=== PATIENT | male | born 1960 | race Caucasian/White ===

== ENCOUNTER 2021-04-12 20:38 | Inpatient (IN) | payer OTHER ==
[2021-04-12] MEDS ORDERED: SODIUM CHLORIDE 2,354 ML IV ONE (20:57)
[2021-04-12 21:58] LABS: BASO % 0.5 % (0-2.0); HEMATOCRIT 30.1 % (35.4-49); HEMOGLOBIN 10.7 GM/dL (11.7-16.9); LYMPH % 17.3 % (8-40); MCH 30.7 pg (25.7-33.7); MCHC 35.6 g/dl (32.0-35.9); MEAN CELL VOLUME 86.1 fl (80-96); MEAN PLT VOLUME 7.9 fl (7.5-11.1); MONO % 7.2 % (3.8-10.2); PLATELET COUNT 334 10^3/uL (134-434); RDW 14.2 % (11.9-15.9)
[2021-04-12 22:12] LABS: VENOUS BASE EXCESS 1.1 mmol/L (-2-2); VENOUS PCO2 55.3 mmHg (38-52); VENOUS PH 7.321 (7.310-7.410)
[2021-04-12 22:17] LABS: CHLORIDE 103 mmol/L (98-107); SODIUM 138 mmol/L (136-145)
[2021-04-12 22:18] LABS: ANION GAP 10 MMOL/L (8-16); CALCIUM 8.8 mg/dL (8.5-10.1); CO2 25 mmol/L (21-32)
[2021-04-12 22:20] LABS: ALBUMIN 3.6 g/dl (3.4-5.0); BLOOD UREA NITROGEN 28.9 mg/dL (7-18); GLUCOSE,RANDOM 141 mg/dL (74-106)
[2021-04-12 22:23] LABS: CREATININE 1.4 mg/dL (0.55-1.3); SGOT/AST 23 U/L (15-37); SGPT/ALT 38 U/L (13-61)
[2021-04-12 22:25] LABS: TOT PROT 7.1 g/dl (6.4-8.2)
[2021-04-12 22:26] LABS: ALK PHOS 69 U/L (45-117); BILIRUBIN,TOTAL 0.4 mg/dL (0.2-1)
[2021-04-12 22:29] LABS: LACTIC ACID 2.4 mmol/L (0.4-2.0)
[2021-04-12 22:32] LABS: INR 1.09 (0.83-1.09); PROTHROMBIN TIME (PATIENT) 13.1 SEC (9.7-13.0)
[2021-04-12 22:34] LABS: ACTIVATED PTT 21.8 SECONDS (25.2-36.5)
[2021-04-12] MEDS ORDERED: SODIUM CHLORIDE 0.9% 500 ML INFUS.BAG IV ONE (22:53)
[2021-04-13 01:08] LABS: PH,URINE 6.5 (5.0-8.0); URINE APPEARANCE CLEAR; URINE BILIRUBIN NEGATIVE (NEGATIVE); URINE COLOR YELLOW; URINE GLUCOSE (UA) NEGATIVE (NEGATIVE); URINE KETONE NEGATIVE (NEGATIVE); URINE LEUK ESTERASE NEGATIVE (NEGATIVE); URINE NITRITE NEGATIVE (NEGATIVE); URINE PROTEIN NEGATIVE (NEGATIVE); URINE UROBILINOGEN 0.2 mg/dL (0.2-1.0)
[2021-04-13 01:59] LABS: LACTIC ACID 2.6 mmol/L (0.4-2.0)
[2021-04-13] MEDS ORDERED: HEPARIN NA (PORCINE) 5,000 UNITS/ML 1ML VIAL ONE ×2 (06:34→13:16)
[2021-04-13] MEDS: HEPARIN NA (PORCINE) 5,000 UNITS/ML 1ML VIAL SQ SCH ×3 (06:37→22:01)
[2021-04-13 08:06] LABS: HEMATOCRIT 31.4 % (35.4-49); HEMOGLOBIN 11.2 GM/dL (11.7-16.9); MCH 30.9 pg (25.7-33.7); MCHC 35.8 g/dl (32.0-35.9); MEAN CELL VOLUME 86.2 fl (80-96); MEAN PLT VOLUME 7.5 fl (7.5-11.1); PLATELET COUNT 319 10^3/uL (134-434); RBC 3.64 M/mm3 (4.00-5.60); RDW 14.1 % (11.9-15.9); WHITE BLOOD COUNT 5.5 K/mm3 (4.0-10.0)
[2021-04-13 08:16] LABS: ALBUMIN 3.5 g/dl (3.4-5.0); BLOOD UREA NITROGEN 20.2 mg/dL (7-18); CALCIUM 8.4 mg/dL (8.5-10.1)
[2021-04-13 08:17] LABS: MAGNESIUM 2.2 mg/dL (1.8-2.4)
[2021-04-13 08:21] LABS: BILIRUBIN,TOTAL 0.3 mg/dL (0.2-1); TOT PROT 6.9 g/dl (6.4-8.2)
[2021-04-13] MEDS ORDERED: ASPIRIN COATED 81 MG TABLET.EC PO SCH (10:00)
[2021-04-13] MEDS ORDERED: ASPIRIN COATED 81 MG TABLET.EC ONE (10:12)
[2021-04-13] MEDS: INSULIN SLIDING SCALE (NOVOLOG) 1 VIAL SQ SCH ×4 (10:15→22:01)
[2021-04-13] MEDS ORDERED: METOPROLOL TARTRATE 50 MG TABLET (FP) PO ONE (12:21)
[2021-04-13] MEDS ORDERED: amLODIPine BESYLATE 5 MG TABLET (FP) PO SCH (12:30)
[2021-04-13] MEDS ORDERED: amLODIPine BESYLATE 5 MG TABLET (FP) ONE (13:16)
[2021-04-13] MEDS ORDERED: CLOPIDOGREL BISULFATE 75 MG TABLET (FP) ONE (13:16)
[2021-04-13] MEDS ORDERED: METOPROLOL TARTRATE 50 MG TABLET (FP) ONE (13:16)
[2021-04-13] MEDS: CLOPIDOGREL BISULFATE 75 MG TABLET (FP) PO SCH (13:35)
[2021-04-13 16:07] VITALS: BMI 30.4
[2021-04-13] MEDS ORDERED: LIDOCAINE 5% TOPICAL PATCH TP ONE (19:23)
[2021-04-13] MEDS ORDERED: ACETAMINOPHEN 1000 MG/100 ML VIAL (NON FORMULARY) IVPB ONE (19:25)
[2021-04-13] MEDS ORDERED: ATORVASTATIN CA 80 MG TABLET (FP) PO SCH ×2 (22:00)
[2021-04-13] MEDS ORDERED: METOPROLOL TARTRATE 50 MG TABLET (FP) PO SCH (22:00)
[2021-04-13] MEDS: METOPROLOL TARTRATE 50 MG TABLET (FP) PO SCH (22:01)
[2021-04-14] MEDS ORDERED: metFORMIN HCL 500 MG TABLET (FP) PO SCH (07:00)
[2021-04-14] MEDS ORDERED: LIDOCAINE PATCH REMOVAL MC ONE (07:30)
[2021-04-14] MEDS: HEPARIN NA (PORCINE) 5,000 UNITS/ML 1ML VIAL SQ SCH ×2 (07:36→14:34)
[2021-04-14] MEDS: INSULIN SLIDING SCALE (NOVOLOG) 1 VIAL SQ SCH ×3 (07:40→17:30)
[2021-04-14] MEDS: METOPROLOL TARTRATE 50 MG TABLET (FP) PO SCH (09:37)
[2021-04-14] MEDS: CLOPIDOGREL BISULFATE 75 MG TABLET (FP) PO SCH (09:37)
[2021-04-14] MEDS ORDERED: amLODIPine BESYLATE 5 MG TABLET (FP) PO SCH (10:00)
[2021-04-14] MEDS ORDERED: VALSARTAN 160 MG TABLET PO SCH (10:00)
[2021-04-14] MEDS ORDERED: ASPIRIN COATED 81 MG TABLET.EC PO SCH (10:00)
[2021-04-14 10:22] LABS: LACTIC ACID 2.4 mmol/L (0.4-2.0)
[2021-04-14] MEDS ORDERED: SODIUM CHLORIDE 0.45% 1,000 ML IV SCH (10:30)
[2021-04-14] MEDS ORDERED: BENZOCAINE/MENTH/CETYLPYRD CL 1 EACH LOZENGE MM PRN (13:03)
[2021-04-14 14:07] VITALS: PULSE 64
[2021-04-14 18:31] VITALS: BP 129/81; TEMP 98.4
== END 2021-04-14 20:13 | disposition home or self-care (01) | DRG 207 ==
LOC: JER 20:38 → JERBED 23:00 → J5S 04-13 15:36
PROVIDERS: ADMIT Internal Medicine; ATTEND Internal Medicine
DX: I95.2 Hypotension due to drugs (principal); N17.9 Acute kidney failure, unspecified; E87.2 Acidosis; E11.22 Type 2 diabetes mellitus with diabetic chronic kidney disease; R00.1 Bradycardia, unspecified; I25.10 Atherosclerotic heart disease of native coronary artery without angina pectoris; Z95.1 Presence of aortocoronary bypass graft; I69.351 Hemiplegia and hemiparesis following cerebral infarction affecting right dominant side; E78.5 Hyperlipidemia, unspecified; D64.9 Anemia, unspecified; I12.9 Hypertensive chronic kidney disease with stage 1 through stage 4 chronic kidney disease, or unspecified chronic kidney disease; N18.9 Chronic kidney disease, unspecified; T44.6X5A Adverse effect of alpha-adrenoreceptor antagonists, initial encounter
CPT/HCPCS: 36415; 71045-TC-FY; 80053; 81003; 82570; 82607; 82728; 82747; 82803; 82962; 83540; 83550; 83605; 83735; 84100; 84300; 84443; 84466; 84484; 85014; 85025; 85027; 85045; 85610; 85730; 87086; 87186; 93005; 93010; 99285-25; C9803; J0131; J1644; U0003; U0005

== ENCOUNTER 2023-07-15 10:22 | Observation (INO) | payer OTHER ==
[2023-07-15 10:46] VITALS: BMI 29.0
[2023-07-15] MEDS ORDERED: LACTATED RINGERS SOLUTION 1000 ML INFUS.BAG IV ONE ×2 (10:53→13:20)
[2023-07-15 12:37] LABS: BASO % 0.6 % (0-2.0); EOS % 1.4 % (0-4.5); HEMATOCRIT 37.8 % (35.4-49); HEMOGLOBIN 13.2 GM/dL (11.7-16.9); LYMPH % 17.8 % (8-40); MCH 30.7 pg (25.7-33.7); MCHC 34.9 g/dl (32.0-35.9); MEAN CELL VOLUME 88.1 fl (80-96); MEAN PLT VOLUME 7.9 fl (7.5-11.1); MONO % 11.9 % (3.8-10.2); NEUT % 68.3 % (42.8-82.8); PLATELET COUNT 315 10^3/uL (134-434); RBC 4.28 M/mm3 (4.00-5.60); RDW 13.6 % (11.9-15.9); WHITE BLOOD COUNT 5.4 K/mm3 (4.0-10.0)
[2023-07-15 12:38] LABS: VENOUS BASE EXCESS -2.2 mmol/L (-2-2); VENOUS O2 SATURATION 25.6 % (70-80); VENOUS PCO2 65.7 mmHg (38-52); VENOUS PH 7.24 (7.310-7.410)
[2023-07-15 12:44] LABS: INR 1.11 (0.83-1.09); PROTHROMBIN TIME (PATIENT) 12.9 SEC (9.7-13.0)
[2023-07-15 12:47] LABS: ACTIVATED PTT 25.5 SECONDS (25.2-36.5)
[2023-07-15 12:55] LABS: POTASSIUM 5.6 mmol/L (3.5-5.1)
[2023-07-15 12:57] LABS: CALCIUM 9.4 mg/dL (8.5-10.1)
[2023-07-15 12:58] LABS: ALBUMIN 3.7 g/dl (3.4-5.0); BLOOD UREA NITROGEN 19.6 mg/dL (7-18); MAGNESIUM 2.5 mg/dL (1.8-2.4)
[2023-07-15 13:01] LABS: CREATININE 1.4 mg/dL (0.55-1.3)
[2023-07-15 13:03] LABS: BILIRUBIN,TOTAL 0.7 mg/dL (0.2-1); TOT PROT 7.5 g/dl (6.4-8.2)
[2023-07-15 13:09] LABS: LACTIC ACID 4.2 mmol/L (0.4-2.0)
[2023-07-15 15:34] LABS: URINE APPEARANCE CLEAR; URINE BILIRUBIN NEGATIVE (NEGATIVE); URINE COLOR YELLOW; URINE GLUCOSE (UA) 3+ (NEGATIVE); URINE KETONE NEGATIVE (NEGATIVE); URINE LEUK ESTERASE NEGATIVE (NEGATIVE); URINE NITRITE NEGATIVE (NEGATIVE); URINE PROTEIN NEGATIVE (NEGATIVE)
[2023-07-15 15:54] LABS: LACTIC ACID 2.6 mmol/L (0.4-2.0)
[2023-07-15 16:28] LABS: ARTERIAL BLD GAS O2 SATURATION 98.3 % (95-98); ARTERIAL BLOOD GAS BASE EXCESS 2.3 mmol/L (-2-2); ARTERIAL BLOOD GAS PO2 113.9 mmHg (80-100); ARTERIAL BLOOD GAS pH 7.429 (7.350-7.450)
[2023-07-15 16:29] LABS: ALLENS TEST POSITIVE
[2023-07-15 16:30] LABS: VENT MODE S/T; VENT RATE 12
[2023-07-15] MEDS ORDERED: SODIUM CHLORIDE 1,000 ML IV SCH (16:30)
[2023-07-15] MEDS ORDERED: ALBUTEROL SO4 0.5 % INH SOLN 2.5 MG/0.5 ML VIAL.NEB. NEB PRN (16:37)
[2023-07-15] MEDS ORDERED: SODIUM ZIRCONIUM CYCLOSILICATE (LOKELMA) 5 GM PACKET PO ONE (16:40)
[2023-07-15] MEDS ORDERED: SODIUM ZIRCONIUM CYCLOSILICATE (LOKELMA) 5 GM PACKET ONE (17:51)
[2023-07-15] MEDS ORDERED: CLOPIDOGREL BISULFATE 75 MG TABLET (FP) ONE (17:52)
[2023-07-15] MEDS: CLOPIDOGREL BISULFATE 75 MG TABLET (FP) PO SCH (18:28)
[2023-07-15] MEDS: ABACAVIR/DOLUTEGRAVIR/LAMIVUDI (TRIUMEQ) TABLET PO SCH (19:26)
[2023-07-15] MEDS ORDERED: hydrOXYzine PAMOATE 25 MG CAPSULE (FP) PO ONE ×2 (20:24→20:30)
[2023-07-15 20:27] LABS: BLOOD UREA NITROGEN 18.7 mg/dL (7-18); CALCIUM 8.7 mg/dL (8.5-10.1)
[2023-07-15 20:30] LABS: CREATININE 1.2 mg/dL (0.55-1.3)
[2023-07-15] MEDS ORDERED: HEPARIN NA (PORCINE) 5,000 UNITS/ML 1ML VIAL ONE (21:29)
[2023-07-15] MEDS ORDERED: ATORVASTATIN CA 80 MG TABLET (FP) ONE (21:29)
[2023-07-15] MEDS ORDERED: GABAPENTIN 300 MG CAPSULE ONE (21:29)
[2023-07-15] MEDS: GABAPENTIN 300 MG CAPSULE PO SCH (21:34)
[2023-07-15] MEDS: HEPARIN NA (PORCINE) 5,000 UNITS/ML 1ML VIAL SQ SCH (21:34)
[2023-07-15] MEDS: INSULIN SLIDING SCALE (NOVOLOG) 1 VIAL SQ SCH (21:34)
[2023-07-15] MEDS ORDERED: ATORVASTATIN CA 80 MG TABLET (FP) PO SCH (22:00)
[2023-07-16] MEDS ORDERED: GABAPENTIN 300 MG CAPSULE ONE (06:24)
[2023-07-16] MEDS ORDERED: HEPARIN NA (PORCINE) 5,000 UNITS/ML 1ML VIAL ONE (06:24)
[2023-07-16] MEDS: GABAPENTIN 300 MG CAPSULE PO SCH (06:34)
[2023-07-16] MEDS: HEPARIN NA (PORCINE) 5,000 UNITS/ML 1ML VIAL SQ SCH (06:34)
[2023-07-16 08:01] LABS: BASO % 0.6 % (0-2.0); HEMATOCRIT 32.7 % (35.4-49); HEMOGLOBIN 11.2 GM/dL (11.7-16.9); LYMPH % 35.2 % (8-40); MCH 30.3 pg (25.7-33.7); MCHC 34.1 g/dl (32.0-35.9); MEAN CELL VOLUME 88.8 fl (80-96); MEAN PLT VOLUME 7.7 fl (7.5-11.1); NEUT % 41.2 % (42.8-82.8); PLATELET COUNT 278 10^3/uL (134-434); RBC 3.68 M/mm3 (4.00-5.60); RDW 13.4 % (11.9-15.9); WHITE BLOOD COUNT 3.4 K/mm3 (4.0-10.0)
[2023-07-16 08:22] LABS: POTASSIUM 4.2 mmol/L (3.5-5.1)
[2023-07-16] MEDS: INSULIN SLIDING SCALE (NOVOLOG) 1 VIAL SQ SCH ×2 (08:27→11:29)
[2023-07-16 08:28] LABS: CALCIUM 9.5 mg/dL (8.5-10.1)
[2023-07-16 08:29] LABS: ALBUMIN 3.2 g/dl (3.4-5.0); BLOOD UREA NITROGEN 21.9 mg/dL (7-18)
[2023-07-16 08:30] LABS: CREATININE 1.1 mg/dL (0.55-1.3); MAGNESIUM 2.3 mg/dL (1.8-2.4)
[2023-07-16 08:32] LABS: BILIRUBIN,TOTAL 0.6 mg/dL (0.2-1); PHOSPHOROUS 3.4 mg/dL (2.5-4.9)
[2023-07-16 08:33] LABS: TOT PROT 6.5 g/dl (6.4-8.2)
[2023-07-16] MEDS ORDERED: ASPIRIN COATED 81 MG TABLET.EC PO SCH (10:00)
[2023-07-16] MEDS ORDERED: MULTIVITAMINS (DAILY MVI) TABLET (FP) PO SCH (10:00)
[2023-07-16] MEDS ORDERED: DULoxetine HCL 30 MG CAPSULE.DR PO SCH (10:00)
[2023-07-16] MEDS: CLOPIDOGREL BISULFATE 75 MG TABLET (FP) PO SCH (11:04)
[2023-07-16] MEDS: ABACAVIR/DOLUTEGRAVIR/LAMIVUDI (TRIUMEQ) TABLET PO SCH (11:04)
[2023-07-16 11:32] VITALS: BP 123/61; PULSE 75; RESP 19; TEMP 97.9
== END 2023-07-16 15:11 | disposition home or self-care (01) ==
LOC: JER 10:22 → JERBED 15:16
PROVIDERS: ADMIT Internal Medicine; ATTEND Internal Medicine
PROC: 3E023GC Introduction of Other Therapeutic Substance into Muscle, Percutaneous Approach (ICD-10-PCS; principal; 2023-07-15)
PROC: 3E013VG Introduction of Insulin into Subcutaneous Tissue, Percutaneous Approach (ICD-10-PCS; 2023-07-15)
DX: R55 Syncope and collapse (principal); J96.92 Respiratory failure, unspecified with hypercapnia; E11.9 Type 2 diabetes mellitus without complications; I25.10 Atherosclerotic heart disease of native coronary artery without angina pectoris; I11.0 Hypertensive heart disease with heart failure; B20 Human immunodeficiency virus [HIV] disease; E87.5 Hyperkalemia; E78.5 Hyperlipidemia, unspecified; E03.9 Hypothyroidism, unspecified; N17.9 Acute kidney failure, unspecified; Z95.5 Presence of coronary angioplasty implant and graft; Z87.891 Personal history of nicotine dependence; Z88.8 Allergy status to other drugs, medicaments and biological substances; Z86.73 Personal history of transient ischemic attack (TIA), and cerebral infarction without residual deficits
CPT/HCPCS: 0241U-QW; 36415; 36600; 70450-TC; 70544-TC; 71045-TC-FY; 80048; 80053; 81003; 82010; 82550; 82803; 82962; 83036; 83605; 83735; 84100; 84443; 84484; 85025; 85610; 85730; 86850; 86900; 86901; 87086; 93005; 93010; 93306-TC; 94660; 96360; 96372; 99285-25; G0378; J1644